=== PATIENT | male | born 1975 | race Two or more races ===

== ENCOUNTER 2019-10-10 08:00 | Outpatient (CLI) | payer OTHER ==
[~2019-10-10 08:00] MED LIST: 2 BP MEDS
== END 2019-10-10 23:59 | disposition home or self-care (01) ==
LOC: STAR 08:00
PROVIDERS: ATTEND Orthopaedic Surgery
DX: Z02.9 Encounter for administrative examinations, unspecified (principal)

== ENCOUNTER 2019-10-17 05:12 | Day surgery (SDC) | payer OTHER ==
[~2019-10-17] VITALS: Ht 172.7 cm; Wt 84.8 kg
[2019-10-17] MEDS ORDERED: LACTATED RINGERS 1,000 ML IV SCH (06:06)
[2019-10-17] MEDS ORDERED: AMLO-150 PO (06:07)
[2019-10-17 06:10] VITALS: BP 134/90
[2019-10-17] MEDS ORDERED: MIDAZOLAM 1 MG/ML, 2ML ONE (06:13)
[2019-10-17] MEDS ORDERED: FENTANYL PF 250 MCG/5ML ONE (06:13)
[2019-10-17] MEDS ORDERED: OXYcodone 5 MG/5 ML ORAL.SOL UDC PO PRN (06:30)
[2019-10-17] MEDS ORDERED: hydrALAzine 20 MG/ML, 1ML IV PRN (06:30)
[2019-10-17] MEDS ORDERED: FENTANYL PF 100 MCG/2ML IV PRN (06:30)
[2019-10-17] MEDS ORDERED: ONDANSETRON 2MG/ML, 2ML IV PRN (06:30)
[2019-10-17] MEDS ORDERED: LIDOCAINE-MPF 1%, 2ML INFIL ONE (06:30)
[2019-10-17] MEDS ORDERED: ACETAMINOPHEN 500 MG TABLET PO ONE (06:30)
[2019-10-17] MEDS ORDERED: MEPERIDINE/PF 25MG/ML,1ML IVPush PRN (06:30)
[2019-10-17] MEDS ORDERED: LORazepam 2 MG/ML, 1ML IVPush PRN (06:30)
[2019-10-17] MEDS ORDERED: GABAPENTIN 300 MG CAPSULE PO ONE (06:30)
[2019-10-17] MEDS ORDERED: HYDROmorphone 2 MG/ML, 1ML IVPush PRN (06:30)
[2019-10-17] MEDS ORDERED: LABETALOL 5MG/ML, 20ML IV PRN (06:30)
[2019-10-17] MEDS ORDERED: ACETAMINOPHEN 500 MG TABLET ONE (06:34)
[2019-10-17] MEDS ORDERED: GABAPENTIN 300 MG CAPSULE ONE (06:34)
[2019-10-17] MEDS ORDERED: BUPIVACAINE/PF-EPI 0.25% 1:200K ONE (06:35)
[2019-10-17] MEDS ORDERED: NEOSTIGMINE 1 MG/ML, 10ML ONE (06:59)
[2019-10-17] MEDS ORDERED: DEXAMETHASONE 4 MG/ML, 1ML ONE ×2 (06:59→07:26)
[2019-10-17] MEDS ORDERED: GLYCOPYRROLATE 0.2MG/1ML, 5ML ONE (06:59)
[2019-10-17] MEDS ORDERED: CEFAZOLIN 1,000 MG ONE ×2 (07:26)
[2019-10-17] MEDS ORDERED: ROPIvacaine/PF 0.5%, 30 ML ONE (07:26)
[2019-10-17] MEDS ORDERED: ONDANSETRON 2MG/ML, 2ML ONE (07:26)
[2019-10-17] MEDS ORDERED: PROPOFOL 10 MG/ML, 20ML ONE (07:26)
[2019-10-17] MEDS ORDERED: ROCURONIUM 10MG/ML,5ML ONE (07:26)
[2019-10-17] MEDS ORDERED: LIDOCAINE-MPF 2% ,5ML ONE (07:27)
[2019-10-17] MEDS ORDERED: EPINEPHRINE 1 MG/ML, 1ML ONE (07:27)
[2019-10-17] MEDS ORDERED: OXYcodone 5 MG/5 ML ORAL.SOL UDC ONE (09:54)
== END 2019-10-17 11:20 | disposition home or self-care (01) ==
LOC: OUT 05:12
PROVIDERS: ATTEND Orthopaedic Surgery
DX: M24.411 Recurrent dislocation, right shoulder (principal); M75.101 Unspecified rotator cuff tear or rupture of right shoulder, not specified as traumatic; M25.811 Other specified joint disorders, right shoulder; M19.011 Primary osteoarthritis, right shoulder; I10 Essential (primary) hypertension; F17.210 Nicotine dependence, cigarettes, uncomplicated; Z79.899 Other long term (current) drug therapy
CPT/HCPCS: 23120; 23552; 29823; 29826; 29827; C1713; C1762; C1776; J0171; J0690; J1100; J2250; J2405; J2704; J2710; J2795; J3010; J7120